=== PATIENT | male | born 1930 | race Caucasian/White ===

== ENCOUNTER 2018-04-03 15:53 | Inpatient (IN) | payer OTHER ==
--- NOTE | 2018-04-03 16:13 | EDM.PDOC ---
ED HPI GENERAL MEDICAL PROBLEM - General Chief Complaint: Genitourinary Problem Stated Complaint: post TURP 04-02-18, now cannot void Time Seen by Provider: 04/03/18 16:05 Source of Information: Reports: Patient, Family (Daughter, Deb), Old Records ( [facility] EMR. No paper hospital chart available.) History Limitations: Reports: No Limitations - History of Present Illness INITIAL COMMENTS - FREE TEXT/NARRATIVE: The patient was brought to the emergency room via private automobile by his daughter for evaluation of postoperative urinary retention after TURP at [facility] yesterday. His Joshua catheter was discontinued at about 7 AM this morning with patient able to void without significant difficulty prior to discharge at about 10:30 a.m. Since that time, however, he has not been able to void at all with increasing 6/10 suprapubic pain and pressure secondary to urinary retention. No recent history of abdominal pain, heartburn, nausea, diarrhea, melena, gross hematochezia, or any food intolerance , including fatty foods, etc. with normal bowel movement immediately prior to arrival to our emergency room. The patient denies any chest pain/pressure, heart flutter, dizziness, orthostasis, orthopnea, diaphoresis, paresthesias, recent decreased exercise tolerance, or any other anginal-type symptoms. The patient also denies any recent fever, cough, wheezing, dyspnea, etc.. The patient did have IV Cipro at time of the above hospitalization with development of a rash despite tolerating Cipro in the past. Onset: Today, Gradual Onset Date: 04/03/18 Onset Time: 10:30 Duration: Constant, Getting Worse Location: Reports: Pelvis. Denies: Head, Face, Neck, Chest, Abdomen, Back, Generalized, Radiates to Quality: Reports: Pressure Severity: Moderate Improves with: Reports: None Worsens with: Reports: None Context: Reports: Other (As above) Associated Symptoms: Reports: Rash (Previous rash resolved as above). Denies: Confusion, Chest Pain, Cough, Diaphoresis, Fever/Chills, Headaches, Loss of Appetite, Malaise, Nausea/Vomiting, Shortness of Breath, Syncope, Weakness Treatments DENTAL TECHNOLOGIST: Reports: Other (see below) (None) Middle Pelvic Pain Score (Numeric/FACES): 6 - Related Data Allergies Allergy/AdvReac Type Severity Reaction Status Date / Time cashew nut Allergy Airway Verified 04/03/18 15:56 Tightness ciprofloxacin [From Cipro] Allergy Hives Verified 04/03/18 15:55 pistachio nut Allergy Airway Verified 04/03/18 15:56 Tightness Home Meds: Home Meds Acetaminophen [Tylenol] 650 mg PO Q6H 04/03/18 [History] Atenolol 0.25 tab PO BEDTIME 04/03/18 [History] Atenolol [Tenormin] 25 mg PO DAILY 04/03/18 [History] Ferrous Sulfate [Slow Release Iron] 160 mg PO Q48H 04/03/18 [History] Finasteride 5 mg PO BID 04/03/18 [History] LORazepam [Ativan] 0.5 mg PO DAILY 04/03/18 [History] LORazepam [Ativan] 1 mg PO BEDTIME 04/03/18 [History] Magnesium Oxide 250 mg PO Q72H 04/03/18 [History] PARoxetine HCl [Paxil] 40 mg PO DAILY 04/03/18 [History] Polyethylene Glycol 3350 [Miralax] 17 gm PO DAILY 04/03/18 [History] Past Medical History HEENT History: Reports: Hard of Hearing, Impaired Vision, Other (See Below). Denies: Allergic Rhinitis, Cataract, Glaucoma, Macular Degeneration, Retinal Detachment Other HEENT History: Moderate bilateral presbycusis including with hearing aid therapy bilaterally. Patient was glasses. Previous history of nasal fracture at about age 28. Cardiovascular History: Reports: Afib, Arrhythmia, Hypertension, Other (See Below). Denies: Aneurysm, Blood Clots/VTE/DVT, CAD, Heart Failure, Heart Murmur , High Cholesterol, OH, PVD, Syncope Other Cardiovascular History: Previous history of atrial fibrillation and Pradaxa therapy, which was stopped secondary to GI bleed as below. Complete right bundle branch block. Pulmonary hypertension by EKG. Respiratory History: Reports: Intubation, Previous. Denies: Asthma, Bronchitis , Recurrent, COPD, Intubation, Difficult, PE, Pneumonia, Recurrent, Pneumothorax , Sleep Apnea, TB Gastrointestinal History: Reports: Chronic Constipation, Diverticulosis, Gastritis, GI Bleed, Hemorrhoids, Other (See Below). Denies: Celiac Disease, Cholelithiasis, Chronic Diarrhea, Colon Polyp, Hepatitis, Inflammatory Bowel Disease, Irritable Bowel Syndrome, Jaundice, Pancreatitis Other Gastrointestinal History: GI bleed of unknown source in 2017 secondary to Pradaxa, which has since been discontinued. Genitourinary History: Reports: BPH, Prostate Disorder, Retention, Urinary, UTI , Recurrent, Other (See Below). Denies: Acute Renal Failure, Chronic Renal Insuffiency, Dialysis, Renal Calculus, STD, Urinary Incontinence Other Genitourinary History: 2.7 cm right renal cysts by ultrasound. Musculoskeletal History: Reports: Arthritis, Neck Pain, Chronic, Osteoarthritis. Denies: Amputation, Back Pain, Chronic, Fracture, Gout, RA, SLE Neurological History: Reports: Neuropathy, Peripheral, TIA, Other (See Below). Denies: Alzheimers Disease, Cerebral Aneurysms, Concussion, CVA, Headaches, Chronic, Head Trauma, Migraines, MS, Neuropathy, Diabetic, Parkinson's, Seizure , Vertigo Other Neuro History: Current TIAs possibly secondary to atrial fibrillation and intolerance to anticoagulation as above initially diagnosed at age 86. Benign essential tremor. Psychiatric History: Reports: Anxiety, Depression, Psych Hospitalization(s), Suicide Attempt, Suicidal Ideation, Other (See Below). Denies: Abuse, Victim of , ADD, ADHD, Addiction, Alzheimers Disease, Dementia, Hallucinations, Panic Attack, PTSD Other Psychiatric History: Psychiatric hospitalization in the [place] in [place] for suicidal attempt in April 2017 with the patient trying to hang himself at that time. Endocrine/Metabolic History: Reports: Other (See Below). Denies: Diabetes, Type I, Diabetes, Type II, Diabetes Mellitus, Type 3c, Hypothyroidism, IDDM, Osteopenia, Osteoporosis Other Endocrine/Metabolic History: Hypomagnesemia. Hyponatremia. Hematologic History: Reports: Anemia, Iron Deficiency. Denies: Blood Transfusion(s) Immunologic History: Denies: AIDS, HIV, SLE Oncologic (Cancer) History: Reports: None. Denies: Basal Cell Carcinoma, Bladder, Colon, Hodgkin's Lymphoma, Leukemia, Lymphoma, Non-Hodgkin's Lymphoma, Prostate, Squamous Cell Carcinoma Dermatologic History: Reports: Eczema. Denies: Psoriasis - Infectious Disease History Infectious Disease History: Reports: Chicken Pox, Measles, Mumps, Shingles, Other (See Below). Denies: C-Difficile, Meningitis, Mononucleosis, MRSA, Pertussis (Whooping Cough), Rheumatic Fever, Rubella, Scarlet Fever, TB, VRE Other Infectious Disease History: Shingles in the posterior aspect of the Right leg in the 1980s. - Past Surgical History Head Surgeries/Procedures: Reports: None HEENT Surgical History: Reports: Adenoidectomy, Oral Surgery, Tonsillectomy, Other (See Below). Denies: Cataract Surgery, Eye Surgery, Laser Surgery, LASIK , Myringotomy w Tube(s), Naso-Sinus Surgery, Polypectomy Other HEENT Surgeries/Procedures: Tonsillectomy and adenoidectomy as a child. [place] teeth extraction 4 at age 19 with additional teeth extractions. Cardiovascular Surgical History: Reports: None. Denies: Varicose, Vascular Surgery Respiratory Surgical History: Reports: None. Denies: Thoracentesis GI Surgical History: Reports: Appendectomy, Colon, EGD, Hernia, Inguinal, Other (See Below). Denies: Cholecystectomy, Polypectomy Other GI Surgeries/Procedures: Appendectomy at about age 9. EGD and colonoscopy in 2017. Right inguinal hernia repair at about age 68. Male Surgical History: Reports: TURP-Transurethral Resection of Prostate, Other (See Below). Denies: Circumcision, Vasectomy Other Male Surgeries/Procedures: Right Sided hydrocele repair 2007. TURP on 04/02/18. Endocrine Surgical History: Reports: None. Denies: Thyroid Biopsy Neurological Surgical History: Reports: None. Denies: C-Spine, Discectomy, Laminectomy, Lumbar Spine, Sacral Spine, Spinal Fusion, Thoracic Spine, Vertebroplasty Musculoskeletal Surgical History: Denies: Arthroscopic Procedure, Carpal Tunnel , Ganglion Cyst, Joint Replacement, ORIF, Shoulder Surgery Oncologic Surgical History: Reports: None Dermatological Surgical History: Reports: Other (See Below) Other Dermatological Surgeries/Procedures: Benign cyst removal from the left hand at about age 53. - Past Imaging History Past Imaging History: Reports: Ultrasound (Pelvic ultrasound on 02/14/15.) Social & Family History - Family History HEENT: Reports: None. Denies: Glaucoma, Macular Degeneration, Retinal Detachment Cardiac: Reports: None. Denies: Afib, Aneurysm, Arrhythmia, Blood Clots/VTE/DVT , Bypass, CAD, Heart Failure, High Cholesterol, Hypertension, OH, PVD/COD, Stent , Syncope Respiratory: Reports: None. Denies: Asthma, COPD, PE, Pneumothorax, Sleep Apnea GI: Reports: None. Denies: Celiac Disease, Cholelithiasis, Colon Polyps, GERD, GI bleed, Inflammatory Bowel Disease, Irritable Bowel Syndrome, PUD : Reports: Renal Disease/Insufficiency, Other (See Below). Denies: Dialysis, Renal Calculus Other Family History: Brother with renal insufficiency secondary to alcohol use. OBGYN: Reports: None. Denies: Endometriosis, Recurrent Spontaneous Musculoskeletal: Reports: None. Denies: Gout, RA, SLE Neurological: Reports: CVA, Other (See Below). Denies: Alzheimers Disease, Cerebral Aneurysms, Dementia, Migraines, MS, Parkinson's, Seizure, TIA Other Neurological Family History: Father with fatal CVA in his 70s. Psychiatric: Reports: Anxiety, Depression, Psych Hospitalization(s), Suicide Attempt, Other (See Below). Denies: Abuse, Victim of, ADD, ADHD, PTSD Other Psychiatric Family History: Mother with successful suicide at age 35. Sister with successful suicide at 48. another sister with attempted suicidal at about age 50. Brother with history of alcohol abuse. Endocrine/Metabolic: Reports: None. Denies: Diabetes, Type I, Diabetes, type II , Diabetes Mellitus, Type 3c, Hypothyroidism, IDDM Hematologic: Reports: None. Denies: Anemia, SLE Immunologic: Reports: None. Denies: AIDS, HIV, SLE Dermatologic: Reports: None. Denies: Eczema, Psoriasis Oncologic: Reports: None. Denies: Bladder, Colon, Hodgkin's Lymphoma, Leukemia , Lymphoma, Non-Hodgkin's Lymphoma, Prostate, Renal, Skin - Tobacco Use Smoking Status *Q: Never Smoker Tobacco Use Within Last Twelve Months: No Used Tobacco, but Quit: No Smoking Cessation Information Provided To Patient: No Second Hand Smoke Exposure: Yes Source of Second Hand Smoke Exposure: Daughter smokes Second Hand Smoke Education Provided: Yes - Caffeine Use Caffeine Use: Reports: None. Denies: Coffee, Energy Drinks, Soda, Tea - Alcohol Use Alcohol Use History: Yes Days Per Week of Alcohol Use: 7 Number of Drinks Per Day: 1 Number of Drinks Per Day Comment: No previous DWIs, problems with alcohol abuse , etc. Usually beer Total Drinks Per Week: 7 Alcohol Use in Last Twelve Months: No Alcohol Use Frequency: Daily - Recreational Drug Use Recreational Drug Use: No Drug Use in Last 12 Months: No Recreational Drug Type: Denies: Amphetamines (Speed), Cocaine, Heroin, Inhalants (Glues, Solvents, Aerosols), LSD (Acid), Marijuana/Hashish, Methamphetamine, Morphine, Oxycodone - Living Situation & Occupation Living situation: Reports: (September 2015. 3 natural children and 2 stepchildren.) Occupation: Retired (Retired [employer] at age 66.) ED ROS GENERAL - Review of Systems Review Of Systems: ROS reveals no pertinent complaints other than HPI. ED EXAM, GENERAL - Physical Exam Exam: See Below Exam Limited By: No Limitations General Appearance: Alert, WD/WN, No Apparent Distress, Anxious (Mild) Eye Exam: Bilateral Eye: EOMI, Normal Inspection (Patient wearing glasses. No nystagmus), PERRL Ears: Normal External Exam, Hearing Loss (Moderate to severe persistent presbycusis despite bilateral hearing and therapy.) Nose: Normal Mucosa, No Blood, Nasal Deformity (Secondary Neck very to previous nasal fracture) Throat/Mouth: Normal Inspection, Normal Lips, Normal Teeth (Multiple missing teeth), Normal Gums, Normal Oropharynx, Normal Voice, No Airway Compromise. No : Dysphagia, Perioral Cyanosis Head: Atraumatic, Normocephalic. No: Facial Swelling, Facial Tenderness, Sinus Tenderness Neck: Supple, Non-Tender, Full Range of Motion, Carotid Bruit (Mild bilateral carotid bruits). No: Lymphadenopathy (L), Lymphadenopathy (R), Thyromegaly Respiratory/Chest: No Respiratory Distress, Lungs Clear, Normal Breath Sounds, No Accessory Muscle Use, Chest Non-Tender. No: Pleural Rub, Retractions Cardiovascular: Normal Peripheral Pulses, Regular Rate, Rhythm, No Edema, No Gallop, No JVD, No Murmur, No Rub. No: Gallop/S3, Gallop/S4, Friction Rub Peripheral Pulses: 2+: Radial (L), Radial (R), Dorsalis Pedis (L), Dorsalis Pedis (R) GI/Abdominal: Normal Bowel Sounds, No Organomegaly, No Distention, No Abnormal Bruit, No Mass, Pelvis Stable, Tender (Mild palpation pain over the bladder with evidence of retention). No: Guarding, Rigid, Rebound (Male) Exam: Deferred Rectal (Males) Exam: Deferred Back Exam: Normal Inspection, Full Range of Motion. No: CVA Tenderness (L), CVA Tenderness (R), Muscle Spasm Extremities: Normal Inspection, Normal Range of Motion, Non-Tender, No Pedal Edema, Normal Capillary Refill. No: Zelalem's Sign Neurological: Alert, Oriented, CN II-XII Intact, Normal Cognition, Normal Gait, Normal Reflexes (Negative Babinski's), No Motor/Sensory Deficits, Other (Benign resting tremor in hands with no rigidity or cogwheeling) Psychiatric: Normal Affect, Normal Mood Skin Exam: Warm, Dry, Intact, Normal Color, No Rash. No: Diaphoretic, Wound/ Incision Lymphatic: No Adenopathy Course - Vital Signs Last Recorded V/S: Last Vital Signs Temp 36.4 C 04/03/18 16:04 Pulse 67 04/03/18 16:04 Resp 20 04/03/18 16:04 BP 150/71 H 04/03/18 16:04 Pulse Ox 95 04/03/18 16:04 Vital Signs - 24 hr 04/03/18 16:04 Temperature [ 36.4 C Temporal] Pulse, 67 Peripheral [ Right Pulse Oximetry] Respiratory 20 Rate Blood Pressure 150/71 H [Right Upper Arm] O2 Sat by Pulse 95 Oximetry - Orders/Labs/Meds Orders: Active Orders 24 hr Category Date Time Status Communication Order [RC] ROUTINE Care 04/03/18 16:16 Active Insert Joshua Catheter [Insert Urinary Catheter] [OM.PC] Care 04/03/18 16:15 Ordered Q24H Peripheral IV Care [RC] . DIRECTED Care 04/03/18 16:17 Active Urinary Catheter Assessment [RC] ASDIRECTED Care 04/03/18 16:16 Active CULTURE URINE [RM] Routine Lab 04/03/18 17:10 Received Sodium Chloride 0.9% [Saline Flush] Med 04/03/18 16:17 Active 10 ml FLUSH ASDIRECTED PRN cefTRIAXone [Rocephin] 1 gm Med 04/03/18 17:00 Active Sodium Chloride 0.9% [Normal Saline] 100 ml IV Q12H Obtain Past Medical Record [OM.PC] Routine Oth 04/03/18 16:15 Active Peripheral IV Insertion Adult [OM.PC] Routine Oth 04/03/18 16:17 Ordered Medication Orders Ceftriaxone Sodium 1 gm/ (Sodium Chloride) 100 mls @ 200 mls/hr IV Q12H CHELITA Last Admin: 04/03/18 17:31 Dose: 200 mls/hr Sodium Chloride (Saline Flush) 10 ml FLUSH ASDIRECTED PRN PRN Reason: Keep Vein Open Last Admin: 04/03/18 17:31 Dose: 10 ml Labs: Laboratory Tests 04/03/18 04/03/18 04/03/18 Range/Units 16:27 16:27 16:27 WBC 13.3 H (4.0-10.2) K/uL RBC 4.28 L (4.33-5.41) M/uL Hgb 15.1 (13.1-16.8) g/dL Hct 42.5 (39.0-49.0) % MCV 99.3 H (84.0-98.0) fL MCH 35.3 H (28.2-33.3) pg MCHC 35.5 (31.7-36.0) g/dL RDW 12.0 (11.2-14.1) % Plt Count 161 (150-350) K/uL Neut % (Auto) 81.2 H (45.0-80.0) % Lymph % (Auto) 7.5 L (10.0-50.0) % [place] % (Auto) 11.2 (2.0-14.0) % Eos % (Auto) 0.0 (0.0-5.0) % Baso % (Auto) 0.1 (0.0-2.0) % Neut # (Auto) 10.79 H (1.40-7.00) K/uL Lymph # (Auto) 1.00 (0.50-3.50) K/uL [place] # (Auto) 1.49 H (0.00-1.00) K/uL Eos # (Auto) 0.00 (0.00-0.50) K/uL Baso # (Auto) 0.01 (0.00-0.20) K/uL Sodium 135 L (136-145) mmol/L Potassium 5.0 (3.5-5.1) mmol/L Chloride 100 (98-107) mmol/L Carbon Dioxide 26.7 (21.0-32.0) mmol/L BUN 18 (7-18) mg/dL Creatinine 1.09 (0.51-1.17) mg/dL Est Cr Clr Drug Dosing TNP Estimated GFR (MDRD) > 60 mL/min Glucose 103 (74-106) mg/dL Lactic Acid (0.4-2.0) mmol/L Uric Acid 3.7 (2.6-7.2) mg/dL Calcium 8.8 (8.5-10.1) mg/dL Magnesium 2.1 (1.8-2.4) mg/dL Total Bilirubin 0.7 (0.2-1.0) mg/dL AST 20 (15-37) U/L ALT 23 (12-78) U/L Alkaline Phosphatase 76 (46-116) IU/L Total Protein 6.7 (6.4-8.2) g/dL Albumin 3.3 L (3.4-5.0) g/dL Specimen Type Urine Color Urine Appearance Urine pH (5.0-9.0) Ur Specific [place] (1.005-1.030) Urine Protein (NEGATIVE) mg/dL Urine Glucose (UA) (NEGATIVE) mg/dL Urine Ketones (NEGATIVE) mg/dL Urine Occult Blood (NEGATIVE) Urine Nitrite (NEGATIVE) Urine Bilirubin (NEGATIVE) Urine Urobilinogen (0.2-1.0) E.U./dL Ur Leukocyte Esterase (NEGATIVE) Urine RBC /HPF Urine WBC /HPF Ur Epithelial Cells /LPF Urine Bacteria (NONE TO FEW) /HPF 04/03/18 04/03/18 Range/Units 16:27 17:10 WBC (4.0-10.2) K/uL RBC (4.33-5.41) M/uL Hgb (13.1-16.8) g/dL Hct (39.0-49.0) % MCV (84.0-98.0) fL MCH (28.2-33.3) pg MCHC (31.7-36.0) g/dL RDW (11.2-14.1) % Plt Count (150-350) K/uL Neut % (Auto) (45.0-80.0) % Lymph % (Auto) (10.0-50.0) % [place] % (Auto) (2.0-14.0) % Eos % (Auto) (0.0-5.0) % Baso % (Auto) (0.0-2.0) % Neut # (Auto) (1.40-7.00) K/uL Lymph # (Auto) (0.50-3.50) K/uL [place] # (Auto) (0.00-1.00) K/uL Eos # (Auto) (0.00-0.50) K/uL Baso # (Auto) (0.00-0.20) K/uL Sodium (136-145) mmol/L Potassium (3.5-5.1) mmol/L Chloride (98-107) mmol/L Carbon Dioxide (21.0-32.0) mmol/L BUN (7-18) mg/dL Creatinine (0.51-1.17) mg/dL Est Cr Clr Drug Dosing Estimated GFR (MDRD) mL/min Glucose (74-106) mg/dL Lactic Acid 2.1 H (0.4-2.0) mmol/L Uric Acid (2.6-7.2) mg/dL Calcium (8.5-10.1) mg/dL Magnesium (1.8-2.4) mg/dL Total Bilirubin (0.2-1.0) mg/dL AST (15-37) U/L ALT (12-78) U/L Alkaline Phosphatase (46-116) IU/L Total Protein (6.4-8.2) g/dL Albumin (3.4-5.0) g/dL Specimen Type Urincath Urine Color Red Urine Appearance Turbid Urine pH 6.5 (5.0-9.0) Ur Specific [place] 1.020 (1.005-1.030) Urine Protein >=300 H (NEGATIVE) mg/dL Urine Glucose (UA) Negative (NEGATIVE) mg/dL Urine Ketones Negative (NEGATIVE) mg/dL Urine Occult Blood Large H (NEGATIVE) Urine Nitrite Negative (NEGATIVE) Urine Bilirubin Negative (NEGATIVE) Urine Urobilinogen 0.2 (0.2-1.0) E.U./dL Ur Leukocyte Esterase Trace H (NEGATIVE) Urine RBC Packed /HPF Urine WBC 0-5 /HPF Ur Epithelial Cells Few /LPF Urine Bacteria Few (NONE TO FEW) /HPF Urine specimen set up for culture and sensitivity. Meds: Medications Generic Name Dose Route Start Last Admin Trade Name Freq PRN Reason Stop Dose Admin Ceftriaxone Sodium 1 gm/ 100 mls @ 200 mls/hr 04/03/18 17:00 04/03/18 17:31 Sodium Chloride IV 200 mls/hr Q12H CHELITA Administration Sodium Chloride 10 ml 04/03/18 16:17 04/03/18 17:31 Saline Flush FLUSH 10 ml ASDIRECTED PRN Administration Keep Vein Open - Radiology Interpretation Free Text/Narrative:: None Departure - Departure Time of Disposition: 17:35 Disposition: Admitted As Inpatient 64 Condition: Good Clinical Impression: UTI, Urinary tract infectious disease, Urinary retention, Hyponatremia, Hypoalbuminemia, Lactic acid increased, Mixed anxiety depressive disorder Osteoarthritis Qualifiers: Osteoarthritis location: multiple joints Osteoarthritis type: primary Qualified Code(s): M15.0 - Primary generalized (osteo)arthritis Iron deficiency anemia Qualifiers: Iron deficiency anemia type: unspecified iron deficiency Qualified Code(s): D50.9 - Iron deficiency anemia, unspecified Hypertension Qualifiers: Hypertension type: essential hypertension Qualified Code(s): I10 - Essential ( primary) hypertension - Discharge Information *PRESCRIPTION DRUG MONITORING PROGRAM REVIEWED*: Not Applicable *COPY OF PRESCRIPTION DRUG MONITORING REPORT IN PATIENT KIKA: Not Applicable - Problem List & Annotations (1) Urinary retention SNOMED Code(s): 064308018 Code(s): R33.9 - RETENTION OF URINE, UNSPECIFIED Status: Acute Priority: High Current Visit: No Onset Date: 04/03/18 Annotation/Comment:: Postoperative urinary retention likely secondary to blood clots from his recent TURP. Initiated bladder irrigation in the emergency room. Anticipate 23 days of additional inpatient care. Patient's regular provider, Kye Man M.D. at the [facility], will assume his care a.m.. Note that more than 1000 mL was obtained upon placement of his three-way catheter. (2) Lactic acid increased SNOMED Code(s): 22460258 Code(s): E87.2 - ACIDOSIS Status: Acute Priority: High Current Visit: No Onset Date: 04/03/18 Annotation/Comment:: No clinical evidence of sepsis despite mild leukocytosis as above. Lactic acid level to be repeated in 3 hours and in the a.m. (3) UTI, Urinary tract infectious disease SNOMED Code(s): 80210459 Code(s): N39.0 - URINARY TRACT INFECTION, SITE NOT SPECIFIED Status: Acute Priority: High Current Visit: No Onset Date: 04/03/18 Annotation/ Comment:: Initiated IV Rocephin therapy and obtained a catheterized specimen for UA and culture and sensitivity collected in the emergency room. Note previous IV Cipro therapy during recent auscultation with secondary allergic reaction. (4) Hypertension SNOMED Code(s): 88660038 Code(s): I10 - ESSENTIAL (PRIMARY) HYPERTENSION Status: Chronic Priority : Medium Current Visit: No Annotation/Comment:: Only mildly elevated in the emergency room. Continue to observe closely. Previously stable by history. Qualifiers: Hypertension type: essential hypertension Qualified Code(s): I10 - Essential (primary) hypertension (5) Hypoalbuminemia SNOMED Code(s): 840645714 Code(s): E88.09 - OT DISORDERS OF PLASMA-PROTEIN METABOLISM, NEC Status: Acute Priority: Medium Current Visit: No Onset Date: 04/03/18 Annotation /Comment:: No previous problem with this based on our medical records. Observe for now. Consider Glucerna high-protein supplements depending on his clinical course. (6) Hyponatremia SNOMED Code(s): 94793166 Code(s): E87.1 - HYPO-OSMOLALITY AND HYPONATREMIA Status: Acute Priority : Medium Current Visit: No Onset Date: ~04/03/18 Annotation/Comment:: Previous history of borderline hyponatremia. Observe for now. No cardiac symptoms or evidence of CHF. (7) Iron deficiency anemia SNOMED Code(s): 68089094 Code(s): D50.9 - IRON DEFICIENCY ANEMIA, UNSPECIFIED Status: Chronic Priority: Medium Current Visit: No Annotation/Comment:: Currently under therapy. Observe for now. Qualifiers: Iron deficiency anemia type: unspecified iron deficiency Qualified Code(s) : D50.9 - Iron deficiency anemia, unspecified (8) Mixed anxiety depressive disorder SNOMED Code(s): 786018172 Code(s): F41.8 - OTHER SPECIFIED ANXIETY DISORDERS Status: Chronic Priority: Medium Current Visit: No Annotation/Comment:: Stable by history (9) Osteoarthritis SNOMED Code(s): 867684802 Code(s): M19.90 - UNSPECIFIED OSTEOARTHRITIS, UNSPECIFIED SITE Status: Chronic Priority: Medium Current Visit: No Annotation/Comment:: Stable by history Qualifiers: Osteoarthritis location: multiple joints Osteoarthritis type: primary Qualified Code(s): M15.0 - Primary generalized (osteo)arthritis - Problem List Review Problem List Initiated/Reviewed/Updated: Yes - My Orders Last 24 Hours: My Active Orders 04/03/18 16:15 Insert Joshua Catheter [Insert Urinary Catheter] [OM.PC] Q24H Obtain Past Medical Record [OM.PC] Routine 04/03/18 16:16 Communication Order [RC] ROUTINE Urinary Catheter Assessment [RC] ASDIRECTED 04/03/18 16:17 Peripheral IV Care [RC] . DIRECTED Sodium Chloride 0.9% [Saline Flush] 10 ml FLUSH ASDIRECTED PRN Peripheral IV Insertion Adult [OM.PC] Routine 04/03/18 17:00 cefTRIAXone [Rocephin] 1 gm Sodium Chloride 0.9% [Normal Saline] 100 ml IV Q12H 04/03/18 17:10 CULTURE URINE [RM] Routine - Assessment/Plan Admission H&P: Please use this note as an admission H&P Last 24 Hours: My Active Orders 04/03/18 16:15 Insert Joshua Catheter [Insert Urinary Catheter] [OM.PC] Q24H Obtain Past Medical Record [OM.PC] Routine 04/03/18 16:16 Communication Order [RC] ROUTINE Urinary Catheter Assessment [RC] ASDIRECTED 04/03/18 16:17 Peripheral IV Care [RC] . DIRECTED Sodium Chloride 0.9% [Saline Flush] 10 ml FLUSH ASDIRECTED PRN Peripheral IV Insertion Adult [OM.PC] Routine 04/03/18 17:00 cefTRIAXone [Rocephin] 1 gm Sodium Chloride 0.9% [Normal Saline] 100 ml IV Q12H 04/03/18 17:10 CULTURE URINE [RM] Routine Assessment:: As above Plan: As above. Extensive precautions were given to the patient and his daughter, who are in agreement with the treatment plan. The patient will require about 3-4 days of inpatient/acute care secondary to multiple health problems as above.
[2018-04-03 16:47] LABS: CHLORIDE,CL 100 mmol/L (98-107); SODIUM,NA 135 mmol/L (136-145)
[2018-04-03] MEDS: cefTRIAXone 1 GM in Sodium Chloride 0.9% 100 ML IV SCH (17:31)
[2018-04-03] MEDS: Sodium Chloride 0.9% 10 ML Syringe FLUSH PRN (17:31)
[2018-04-03] MEDS ORDERED: Acetaminophen 325 MG Tab PO PRN (17:46)
[2018-04-03] MEDS ORDERED: Ondansetron 4 MG/2 ML SDV IVPUSH PRN (17:46)
[2018-04-03] MEDS: LORazepam 1 MG Tab PO SCH (19:42)
[2018-04-03] MEDS: Atenolol 25 MG Tab PO SCH (19:42)
[2018-04-03] MEDS: Polyethylene Glycol 3350 Powder 17 GM Packet PO SCH (19:43)
[2018-04-03] MEDS: Sodium Chloride 0.9% 10 ML Syringe FLUSH SCH (19:47)
[2018-04-03] MEDS ORDERED: Lactated Ringers 1,000 ML IV SCH ×2 (20:53→22:00)
[2018-04-03] MEDS ORDERED: Lactated Ringers 1,000 ML IV ONE (20:56)
--- NOTE | 2018-04-04 02:04 | PCM.SN ---
- Free Text/Narrative Note: Note follow-up lactic acid level was still elevated and somewhat increased. 1 L IV LR given with continuation of IV fluids during early phases of this hospitalization.. Lactic acid to be repeated in the a.m. Still no clinical evidence of sepsis.
[2018-04-04] MEDS: cefTRIAXone 1 GM in Sodium Chloride 0.9% 100 ML IV SCH ×2 (05:11→17:34)
[2018-04-04] MEDS: Sodium Chloride 0.9% 10 ML Syringe FLUSH PRN ×2 (05:12→17:36)
[2018-04-04] MEDS ORDERED: Magnesium Oxide 400 MG Tab PO SCH (07:30)
[2018-04-04] MEDS ORDERED: Ferrous Sulfate 160 MG TAB.ER PO ONE (07:30)
[2018-04-04 07:53] LABS: CHLORIDE,CL 100 mmol/L (98-107); SODIUM,NA 135 mmol/L (136-145)
[2018-04-04] MEDS ORDERED: Atenolol 25 MG Tab PO SCH (08:00)
[2018-04-04] MEDS ORDERED: PARoxetine 20 MG Tab PO SCH ×2 (08:00→20:00)
[2018-04-04] MEDS: LORazepam 0.5 MG Tab PO SCH (08:52)
[2018-04-04] MEDS: Sodium Chloride 0.9% 10 ML Syringe FLUSH SCH ×2 (08:53→19:34)
--- NOTE | 2018-04-04 11:52 | PCM.PN ---
- General Info Date of Service: 04/04/18 Admission Dx/Problem (Free Text): Genitourinary retention postoperative Functional Status: Reports: Pain Controlled, Tolerating Diet - Review of Systems General: Reports: Weakness HEENT: Reports: No Symptoms Pulmonary: Reports: No Symptoms Cardiovascular: Reports: No Symptoms Gastrointestinal: Reports: No Symptoms Genitourinary: Reports: Retention, Other (Three-way in place urine pink) Musculoskeletal: Reports: No Symptoms Skin: Reports: No Symptoms Neurological: Reports: No Symptoms Psychiatric: Reports: No Symptoms - Patient Data Vitals - Most Recent: Last Vital Signs Temp 98.8 F 04/04/18 05:43 Pulse 75 04/04/18 05:43 Resp 18 04/04/18 05:43 BP 115/82 04/04/18 05:43 Pulse Ox 93 L 04/04/18 05:43 Weight - Most Recent: 151 lb 7.321 oz I&O - Last 24 Hours: Intake & Output 04/03/18 04/04/18 04/04/18 22:59 06:59 14:59 Intake Total 1090 2150 580 Output Total 2560 3050 790 Balance -1470 -900 -210 Lab Results Last 24 Hours: Laboratory Results - last 24 hr 04/03/18 04/03/18 04/03/18 Range/Units 16:27 16:27 16:27 WBC 13.3 H (4.0-10.2) K/uL RBC 4.28 L (4.33-5.41) M/uL Hgb 15.1 (13.1-16.8) g/dL Hct 42.5 (39.0-49.0) % MCV 99.3 H (84.0-98.0) fL MCH 35.3 H (28.2-33.3) pg MCHC 35.5 (31.7-36.0) g/dL RDW 12.0 (11.2-14.1) % Plt Count 161 (150-350) K/uL Neut % (Auto) 81.2 H (45.0-80.0) % Lymph % (Auto) 7.5 L (10.0-50.0) % [place] % (Auto) 11.2 (2.0-14.0) % Eos % (Auto) 0.0 (0.0-5.0) % Baso % (Auto) 0.1 (0.0-2.0) % Neut # (Auto) 10.79 H (1.40-7.00) K/uL Lymph # (Auto) 1.00 (0.50-3.50) K/uL [place] # (Auto) 1.49 H (0.00-1.00) K/uL Eos # (Auto) 0.00 (0.00-0.50) K/uL Baso # (Auto) 0.01 (0.00-0.20) K/uL PT (9.8-11.7) SEC INR APTT (22.1-29.8) SEC Sodium 135 L (136-145) mmol/L Potassium 5.0 (3.5-5.1) mmol/L Chloride 100 (98-107) mmol/L Carbon Dioxide 26.7 (21.0-32.0) mmol/L BUN 18 (7-18) mg/dL Creatinine 1.09 (0.51-1.17) mg/dL Est Cr Clr Drug Dosing TNP Estimated GFR (MDRD) > 60 mL/min Glucose 103 (74-106) mg/dL Lactic Acid (0.4-2.0) mmol/L Uric Acid 3.7 (2.6-7.2) mg/dL Calcium 8.8 (8.5-10.1) mg/dL Magnesium 2.1 (1.8-2.4) mg/dL Total Bilirubin 0.7 (0.2-1.0) mg/dL AST 20 (15-37) U/L ALT 23 (12-78) U/L Alkaline Phosphatase 76 (46-116) IU/L Total Protein 6.7 (6.4-8.2) g/dL Albumin 3.3 L (3.4-5.0) g/dL Specimen Type Urine Color Urine Appearance Urine pH (5.0-9.0) Ur Specific [place] (1.005-1.030) Urine Protein (NEGATIVE) mg/dL Urine Glucose (UA) (NEGATIVE) mg/dL Urine Ketones (NEGATIVE) mg/dL Urine Occult Blood (NEGATIVE) Urine Nitrite (NEGATIVE) Urine Bilirubin (NEGATIVE) Urine Urobilinogen (0.2-1.0) E.U./dL Ur Leukocyte Esterase (NEGATIVE) Urine RBC /HPF Urine WBC /HPF Ur Epithelial Cells /LPF Urine Bacteria (NONE TO FEW) /HPF 04/03/18 04/03/18 04/03/18 Range/Units 16:27 17:10 20:00 WBC (4.0-10.2) K/uL RBC (4.33-5.41) M/uL Hgb (13.1-16.8) g/dL Hct (39.0-49.0) % MCV (84.0-98.0) fL MCH (28.2-33.3) pg MCHC (31.7-36.0) g/dL RDW (11.2-14.1) % Plt Count (150-350) K/uL Neut % (Auto) (45.0-80.0) % Lymph % (Auto) (10.0-50.0) % [place] % (Auto) (2.0-14.0) % Eos % (Auto) (0.0-5.0) % Baso % (Auto) (0.0-2.0) % Neut # (Auto) (1.40-7.00) K/uL Lymph # (Auto) (0.50-3.50) K/uL [place] # (Auto) (0.00-1.00) K/uL Eos # (Auto) (0.00-0.50) K/uL Baso # (Auto) (0.00-0.20) K/uL PT (9.8-11.7) SEC INR APTT (22.1-29.8) SEC Sodium (136-145) mmol/L Potassium (3.5-5.1) mmol/L Chloride (98-107) mmol/L Carbon Dioxide (21.0-32.0) mmol/L BUN (7-18) mg/dL Creatinine (0.51-1.17) mg/dL Est Cr Clr Drug Dosing Estimated GFR (MDRD) mL/min Glucose (74-106) mg/dL Lactic Acid 2.1 H 2.7 H (0.4-2.0) mmol/L Uric Acid (2.6-7.2) mg/dL Calcium (8.5-10.1) mg/dL Magnesium (1.8-2.4) mg/dL Total Bilirubin (0.2-1.0) mg/dL AST (15-37) U/L ALT (12-78) U/L Alkaline Phosphatase (46-116) IU/L Total Protein (6.4-8.2) g/dL Albumin (3.4-5.0) g/dL Specimen Type [place] Urine Color Red Urine Appearance Turbid Urine pH 6.5 (5.0-9.0) Ur Specific [place] 1.020 (1.005-1.030) Urine Protein >=300 H (NEGATIVE) mg/dL Urine Glucose (UA) Negative (NEGATIVE) mg/dL Urine Ketones Negative (NEGATIVE) mg/dL Urine Occult Blood Large H (NEGATIVE) Urine Nitrite Negative (NEGATIVE) Urine Bilirubin Negative (NEGATIVE) Urine Urobilinogen 0.2 (0.2-1.0) E.U./dL Ur Leukocyte Esterase Trace H (NEGATIVE) Urine RBC Packed /HPF Urine WBC 0-5 /HPF Ur Epithelial Cells Few /LPF Urine Bacteria Few (NONE TO FEW) /HPF 04/04/18 04/04/18 04/04/18 Range/Units 07:05 07:05 07:05 WBC 8.2 (4.0-10.2) K/uL RBC 3.87 L (4.33-5.41) M/uL Hgb 13.6 D (13.1-16.8) g/dL Hct 38.8 L (39.0-49.0) % MCV 100.3 H (84.0-98.0) fL MCH 35.1 H (28.2-33.3) pg MCHC 35.1 (31.7-36.0) g/dL RDW 11.9 (11.2-14.1) % Plt Count 152 (150-350) K/uL Neut % (Auto) 74.3 (45.0-80.0) % Lymph % (Auto) 13.5 (10.0-50.0) % [place] % (Auto) 11.5 (2.0-14.0) % Eos % (Auto) 0.5 (0.0-5.0) % Baso % (Auto) 0.2 (0.0-2.0) % Neut # (Auto) 6.07 (1.40-7.00) K/uL Lymph # (Auto) 1.10 (0.50-3.50) K/uL [place] # (Auto) 0.94 (0.00-1.00) K/uL Eos # (Auto) 0.04 (0.00-0.50) K/uL Baso # (Auto) 0.02 (0.00-0.20) K/uL PT (9.8-11.7) SEC INR APTT (22.1-29.8) SEC Sodium 135 L (136-145) mmol/L Potassium 4.6 (3.5-5.1) mmol/L Chloride 100 (98-107) mmol/L Carbon Dioxide 27.4 (21.0-32.0) mmol/L BUN 15 (7-18) mg/dL Creatinine 0.87 (0.51-1.17) mg/dL Est Cr Clr Drug Dosing 53.82 Estimated GFR (MDRD) > 60 mL/min Glucose 92 (74-106) mg/dL Lactic Acid 1.7 (0.4-2.0) mmol/L Uric Acid (2.6-7.2) mg/dL Calcium 8.1 L (8.5-10.1) mg/dL Magnesium (1.8-2.4) mg/dL Total Bilirubin 0.6 (0.2-1.0) mg/dL AST 15 (15-37) U/L ALT 20 (12-78) U/L Alkaline Phosphatase 71 (46-116) IU/L Total Protein 5.8 L (6.4-8.2) g/dL Albumin 2.9 L (3.4-5.0) g/dL Specimen Type Urine Color Urine Appearance Urine pH (5.0-9.0) Ur Specific [place] (1.005-1.030) Urine Protein (NEGATIVE) mg/dL Urine Glucose (UA) (NEGATIVE) mg/dL Urine Ketones (NEGATIVE) mg/dL Urine Occult Blood (NEGATIVE) Urine Nitrite (NEGATIVE) Urine Bilirubin (NEGATIVE) Urine Urobilinogen (0.2-1.0) E.U./dL Ur Leukocyte Esterase (NEGATIVE) Urine RBC /HPF Urine WBC /HPF Ur Epithelial Cells /LPF Urine Bacteria (NONE TO FEW) /HPF 04/04/18 Range/Units 07:05 WBC (4.0-10.2) K/uL RBC (4.33-5.41) M/uL Hgb (13.1-16.8) g/dL Hct (39.0-49.0) % MCV (84.0-98.0) fL MCH (28.2-33.3) pg MCHC (31.7-36.0) g/dL RDW (11.2-14.1) % Plt Count (150-350) K/uL Neut % (Auto) (45.0-80.0) % Lymph % (Auto) (10.0-50.0) % [place] % (Auto) (2.0-14.0) % Eos % (Auto) (0.0-5.0) % Baso % (Auto) (0.0-2.0) % Neut # (Auto) (1.40-7.00) K/uL Lymph # (Auto) (0.50-3.50) K/uL [place] # (Auto) (0.00-1.00) K/uL Eos # (Auto) (0.00-0.50) K/uL Baso # (Auto) (0.00-0.20) K/uL PT 10.8 (9.8-11.7) SEC INR 1.0 APTT 27.0 (22.1-29.8) SEC Sodium (136-145) mmol/L Potassium (3.5-5.1) mmol/L Chloride (98-107) mmol/L Carbon Dioxide (21.0-32.0) mmol/L BUN (7-18) mg/dL Creatinine (0.51-1.17) mg/dL Est Cr Clr Drug Dosing Estimated GFR (MDRD) mL/min Glucose (74-106) mg/dL Lactic Acid (0.4-2.0) mmol/L Uric Acid (2.6-7.2) mg/dL Calcium (8.5-10.1) mg/dL Magnesium (1.8-2.4) mg/dL Total Bilirubin (0.2-1.0) mg/dL AST (15-37) U/L ALT (12-78) U/L Alkaline Phosphatase (46-116) IU/L Total Protein (6.4-8.2) g/dL Albumin (3.4-5.0) g/dL Specimen Type Urine Color Urine Appearance Urine pH (5.0-9.0) Ur Specific [place] (1.005-1.030) Urine Protein (NEGATIVE) mg/dL Urine Glucose (UA) (NEGATIVE) mg/dL Urine Ketones (NEGATIVE) mg/dL Urine Occult Blood (NEGATIVE) Urine Nitrite (NEGATIVE) Urine Bilirubin (NEGATIVE) Urine Urobilinogen (0.2-1.0) E.U./dL Ur Leukocyte Esterase (NEGATIVE) Urine RBC /HPF Urine WBC /HPF Ur Epithelial Cells /LPF Urine Bacteria (NONE TO FEW) /HPF John Results Last 24 Hours: Microbiology 04/03/18 20:20 Stool Occult Blood (JOHN) - Final Stool / Feces NEGATIVE OCCULT BLOOD Med Orders - Current: Current Medications Acetaminophen (Tylenol) 650 mg PO Q4H PRN PRN Reason: Pain Atenolol (Tenormin) 6.25 mg PO BEDTIME [facility] Last Admin: 04/03/18 19:42 Dose: 6.25 mg Ferrous Sulfate (Slow Release Iron) 160 mg PO Q48H [facility] Ceftriaxone Sodium 1 gm/ (Sodium Chloride) 100 mls @ 200 mls/hr IV Q12H [facility] Last Admin: 04/04/18 05:11 Dose: 200 mls/hr Lorazepam (Ativan) 0.5 mg PO DAILY [facility] Last Admin: 04/04/18 08:52 Dose: 0.5 mg Lorazepam (Ativan) 1 mg PO BEDTIME [facility] Last Admin: 04/03/18 19:42 Dose: 1 mg Magnesium Oxide (Magnesium Oxide) 400 mg PO Q72H [facility] Last Admin: 04/04/18 08:51 Dose: 400 mg Ondansetron HCl (Zofran) 4 mg IVPUSH Q6H PRN PRN Reason: Nausea/Vomiting Paroxetine HCl (Paxil) 40 mg PO BEDTIME [facility] Polyethylene Glycol (Miralax) 17 gm PO BEDTIME [facility] Last Admin: 04/03/18 19:43 Dose: 17 gm Sodium Chloride (Saline Flush) 10 ml FLUSH ASDIRECTED PRN PRN Reason: Keep Vein Open Last Admin: 04/04/18 05:12 Dose: 10 ml Sodium Chloride (Saline Flush) 10 ml FLUSH Q12HR [facility] Last Admin: 04/04/18 08:53 Dose: Not Given Discontinued Medications Atenolol (Tenormin) 25 mg PO DAILY [facility] Last Admin: 04/04/18 08:54 Dose: Not Given Ferrous Sulfate (Slow Release Iron) 160 mg PO ONETIME ONE Stop: 04/04/18 07:31 Last Admin: 04/04/18 08:51 Dose: 160 mg Lactated Ringer's (Ringers, Lactated) 1,000 mls @ 999 mls/hr IV ASDIRECTED [facility] Lactated Ringer's (Ringers, Lactated) 1,000 mls @ 100 mls/hr IV ASDIRECTED [facility] Last Admin: 04/03/18 22:12 Dose: 100 mls/hr Lactated Ringer's (Ringers, Lactated) 1,000 mls @ 999 mls/hr IV ONETIME ONE Stop: 04/03/18 21:56 Last Admin: 04/03/18 21:10 Dose: 999 mls/hr Paroxetine HCl (Paxil) 40 mg PO DAILY [facility] Last Admin: 04/04/18 08:54 Dose: Not Given - Exam General: Alert, Oriented HEENT: Pupils Equal, Pupils Reactive, EOMI, Mucous Membr. Moist/[place] Neck: Supple Lungs: Clear to Auscultation, Normal Respiratory Effort Cardiovascular: Regular Rate, Regular Rhythm GI/Abdominal Exam: Normal Bowel Sounds, Soft, Non-Tender, No Organomegaly, No Distention, No Abnormal Bruit, No Mass, Pelvis Stable (Male) Exam: Other (Three-way catheter in place urine pink) Back Exam: Normal Inspection, Full Range of Motion Extremities: Normal Inspection, Normal Range of Motion, Non-Tender, No Pedal Edema, Normal Capillary Refill Skin: Warm, Dry, Intact Wound/Incisions: Healing Well Neurological: No New Focal Deficit Psy/Mental Status: Alert, Normal Affect, Normal Mood - Problem List & Annotations (1) Urinary retention SNOMED Code(s): 479746982 Code(s): R33.9 - RETENTION OF URINE, UNSPECIFIED Status: Acute Priority: High Current Visit: No Onset Date: 04/03/18 Annotation/Comment:: Postoperative urinary retention secondary to blood clots currently on three-way urine clearing up we will attempt at removal of catheter tomorrow in the morning see if he is able to void if able to void will discharge home - Problem List Review Problem List Initiated/Reviewed/Updated: Yes - My Orders Last 24 Hours: My Active Orders 04/04/18 20:00 PARoxetine [Paxil] 40 mg PO BEDTIME
[2018-04-04] MEDS: Polyethylene Glycol 3350 Powder 17 GM Packet PO SCH (19:03)
[2018-04-04] MEDS: LORazepam 1 MG Tab PO SCH (19:33)
[2018-04-04] MEDS: Finasteride 5 MG Tab PO SCH (19:33)
[2018-04-04] MEDS: Atenolol 25 MG Tab PO SCH (19:33)
[2018-04-05] MEDS: cefTRIAXone 1 GM in Sodium Chloride 0.9% 100 ML IV SCH (05:55)
[2018-04-05] MEDS: LORazepam 0.5 MG Tab PO SCH (07:25)
[2018-04-05] MEDS: Finasteride 5 MG Tab PO SCH (07:26)
[2018-04-05] MEDS: Sodium Chloride 0.9% 10 ML Syringe FLUSH SCH (07:26)
[2018-04-05 08:03] LABS: CHLORIDE,CL 97 mmol/L (98-107); SODIUM,NA 132 mmol/L (136-145)
[2018-04-05] MEDS ORDERED: Ferrous Sulfate 160 MG TAB.ER PO SCH (09:00)
--- NOTE | 2018-04-05 10:00 | PCM.PN ---
- General Info Date of Service: 04/05/18 Admission Dx/Problem (Free Text): Genitourinary retention postoperative today 3-way catheter was checked no gross blood no clots we will go ahead and remove it and discharge him home if voiding okay in the afternoon Functional Status: Reports: Urinating - Review of Systems General: Reports: No Symptoms HEENT: Reports: No Symptoms Pulmonary: Reports: No Symptoms Cardiovascular: Reports: No Symptoms Gastrointestinal: Reports: No Symptoms Musculoskeletal: Reports: No Symptoms Skin: Reports: No Symptoms Neurological: Reports: No Symptoms Psychiatric: Reports: No Symptoms - Patient Data Vitals - Most Recent: Last Vital Signs Temp 98.1 F 04/05/18 08:00 Pulse 64 04/05/18 08:00 Resp 16 04/05/18 08:00 BP 140/80 04/05/18 08:00 Pulse Ox 94 L 04/05/18 08:00 Weight - Most Recent: 151 lb 7.321 oz I&O - Last 24 Hours: Intake & Output 04/04/18 04/05/18 04/05/18 22:59 06:59 14:59 Intake Total 1140 1475 560 Output Total 1365 3150 Balance -225 -1675 560 Lab Results Last 24 Hours: Laboratory Results - last 24 hr 04/05/18 04/05/18 Range/Units 07:35 07:35 WBC 6.8 (4.0-10.2) K/uL RBC 4.00 L (4.33-5.41) M/uL Hgb 14.2 (13.1-16.8) g/dL Hct 39.5 (39.0-49.0) % MCV 98.8 H (84.0-98.0) fL MCH 35.5 H (28.2-33.3) pg MCHC 35.9 (31.7-36.0) g/dL RDW 11.5 (11.2-14.1) % Plt Count 159 (150-350) K/uL Neut % (Auto) 68.1 (45.0-80.0) % Lymph % (Auto) 17.0 (10.0-50.0) % [place] % (Auto) 13.0 (2.0-14.0) % Eos % (Auto) 1.5 (0.0-5.0) % Baso % (Auto) 0.4 (0.0-2.0) % Neut # (Auto) 4.64 (1.40-7.00) K/uL Lymph # (Auto) 1.16 (0.50-3.50) K/uL [place] # (Auto) 0.89 (0.00-1.00) K/uL Eos # (Auto) 0.10 (0.00-0.50) K/uL Baso # (Auto) 0.03 (0.00-0.20) K/uL Sodium 132 L (136-145) mmol/L Potassium 4.4 (3.5-5.1) mmol/L Chloride 97 L (98-107) mmol/L Carbon Dioxide 28.4 (21.0-32.0) mmol/L BUN 15 (7-18) mg/dL Creatinine 0.84 (0.51-1.17) mg/dL Est Cr Clr Drug Dosing 55.74 mL/min Estimated GFR (MDRD) > 60 mL/min Glucose 96 (74-106) mg/dL Calcium 8.3 L (8.5-10.1) mg/dL Total Bilirubin 0.6 (0.2-1.0) mg/dL AST 16 (15-37) U/L ALT 19 (12-78) U/L Alkaline Phosphatase 79 (46-116) IU/L Total Protein 6.1 L (6.4-8.2) g/dL Albumin 2.9 L (3.4-5.0) g/dL John Results Last 24 Hours: Microbiology 04/03/18 17:10 Urine Culture - Preliminary Urine, Catheterized NO GROWTH AFTER 1 DAY Med Orders - Current: Current Medications Acetaminophen (Tylenol) 650 mg PO Q4H PRN PRN Reason: Pain Atenolol (Tenormin) 6.25 mg PO BEDTIME [facility] Last Admin: 04/04/18 19:33 Dose: 6.25 mg Ferrous Sulfate (Slow Release Iron) 160 mg PO Q48H [facility] Last Admin: 04/05/18 08:25 Dose: Not Given Finasteride (Proscar) 5 mg PO BID@08,20 [facility] Last Admin: 04/05/18 07:26 Dose: 5 mg Ceftriaxone Sodium 1 gm/ (Sodium Chloride) 100 mls @ 200 mls/hr IV Q12H [facility] Last Admin: 04/05/18 05:55 Dose: 200 mls/hr Lorazepam (Ativan) 0.5 mg PO DAILY [facility] Last Admin: 04/05/18 07:25 Dose: 0.5 mg Lorazepam (Ativan) 1 mg PO BEDTIME [facility] Last Admin: 04/04/18 19:33 Dose: 1 mg Magnesium Oxide (Magnesium Oxide) 400 mg PO Q72H [facility] Last Admin: 04/04/18 08:51 Dose: 400 mg Ondansetron HCl (Zofran) 4 mg IVPUSH Q6H PRN PRN Reason: Nausea/Vomiting Paroxetine HCl (Paxil) 40 mg PO BEDTIME [facility] Last Admin: 04/04/18 19:33 Dose: 40 mg Polyethylene Glycol (Miralax) 17 gm PO BEDTIME [facility] Last Admin: 04/04/18 19:03 Dose: 17 gm Sodium Chloride (Saline Flush) 10 ml FLUSH ASDIRECTED PRN PRN Reason: Keep Vein Open Last Admin: 04/04/18 17:36 Dose: 10 ml Sodium Chloride (Saline Flush) 10 ml FLUSH Q12HR [facility] Last Admin: 04/05/18 07:26 Dose: 10 ml Discontinued Medications Atenolol (Tenormin) 25 mg PO DAILY [facility] Last Admin: 04/04/18 08:54 Dose: Not Given Ferrous Sulfate (Slow Release Iron) 160 mg PO ONETIME ONE Stop: 04/04/18 07:31 Last Admin: 04/04/18 08:51 Dose: 160 mg Lactated Ringer's (Ringers, Lactated) 1,000 mls @ 999 mls/hr IV ASDIRECTED [facility] Lactated Ringer's (Ringers, Lactated) 1,000 mls @ 100 mls/hr IV ASDIRECTED [facility] Last Admin: 04/03/18 22:12 Dose: 100 mls/hr Lactated Ringer's (Ringers, Lactated) 1,000 mls @ 999 mls/hr IV ONETIME ONE Stop: 04/03/18 21:56 Last Admin: 04/03/18 21:10 Dose: 999 mls/hr Paroxetine HCl (Paxil) 40 mg PO DAILY [facility] Last Admin: 04/04/18 08:54 Dose: Not Given - Exam Quality Assessment: Urine Catheter (Three-way will be removed today). No: Supplemental Oxygen, Central Line/PICC General: Alert, Oriented HEENT: Pupils Equal, Pupils Reactive, EOMI, Mucous Membr. Moist/[place] Neck: Supple Lungs: Clear to Auscultation, Normal Respiratory Effort Cardiovascular: Regular Rate, Regular Rhythm GI/Abdominal Exam: Normal Bowel Sounds, Soft, Non-Tender, No Organomegaly, No Distention, No Abnormal Bruit, No Mass, Pelvis Stable (Male) Exam: Other (Urinary retention secondary to surgery 3 way inserted clear now will discontinue and evaluate to see if he is able to void) Back Exam: Normal Inspection, Decreased Range of Motion Extremities: Normal Inspection, Normal Range of Motion, Non-Tender, No Pedal Edema, Normal Capillary Refill Skin: Warm, Dry, Intact Wound/Incisions: Healing Well Neurological: No New Focal Deficit Psy/Mental Status: Alert, Normal Affect, Normal Mood - Problem List & Annotations (1) Urinary retention SNOMED Code(s): 980997573 Code(s): R33.9 - RETENTION OF URINE, UNSPECIFIED Status: Acute Priority: High Current Visit: No Onset Date: 04/03/18 Annotation/Comment:: Postoperative urinary retention secondary to blood clots currently on three-way urine clearing up we will attempt at removal of catheter tomorrow in the morning see if he is able to void if able to void will discharge home - Problem List Review Problem List Initiated/Reviewed/Updated: Yes - My Orders Last 24 Hours: My Active Orders 04/04/18 15:24 Consult to Physical Therapy [PT Evaluation and Treatment] [CONS] Routine 04/04/18 20:00 Finasteride [Proscar] 5 mg PO BID@08,20 PARoxetine [Paxil] 40 mg PO BEDTIME 04/05/18 09:55 DC Joshua Catheter [Urinary Catheter Removal] [RC] Per Unit Routine - Plan Plan:: Three-way will be removed today if he is able to void we'll send him home
--- NOTE | 2018-04-05 15:18 | PCM.DCSUM1 ---
Discharge Summary - Hospital Course Free Text/Narrative:: Patient is a 87-year-old who was admitted to the hospital because of obstruction in urinary flow secondary to TURP patient was brought admitted and placed on a three-way catheter and saline was run until clear was cleared his Joshua was removed and patient was able to void without any complications now is ready to be discharged home he will be discharged to home health and family patient is a and will receive home health through [facility] Diagnosis: Stroke: No - Discharge Data Discharge Date: 04/05/18 Discharge Disposition: Home, Self-Care 01 Condition: Good - Discharge Diagnosis/Problem(s) (1) Urinary retention SNOMED Code(s): 064902821 ICD Code: R33.9 - RETENTION OF URINE, UNSPECIFIED Status: Acute Priority : High Current Visit: No Onset Date: 04/03/18 Problem Details: Patient able to void x2 without difficulty - Patient Summary/Data Consults: Consultations 04/04/18 15:24 Consult to Physical Therapy [PT Evaluation and Treatment] [CONS] Routine - Patient Instructions Diet: Usual Diet as Tolerated Activity: As Tolerated Showering/Bathing: May Shower Notify Provider of: Fever, Increased Pain, Swelling and Redness, Drainage - Discharge Plan *PRESCRIPTION DRUG MONITORING PROGRAM REVIEWED*: Not Applicable *COPY OF PRESCRIPTION DRUG MONITORING REPORT IN PATIENT KIKA: Not Applicable Home Medications: Home Meds Acetaminophen [Tylenol] 650 mg PO Q6H 04/03/18 [History] Atenolol 0.25 tab PO BEDTIME 04/03/18 [History] Ferrous Sulfate [Slow Release Iron] 160 mg PO Q48H 04/03/18 [History] Finasteride 5 mg PO BID 04/03/18 [History] LORazepam [Ativan] 0.5 mg PO DAILY 04/03/18 [History] LORazepam [Ativan] 1 mg PO BEDTIME 04/03/18 [History] Magnesium Oxide 250 mg PO Q72H 04/03/18 [History] PARoxetine HCl [Paxil] 40 mg PO BEDTIME 04/03/18 [History] Polyethylene Glycol 3350 [Miralax] 17 gm PO BEDTIME 04/03/18 [History] Forms: ED Department Discharge Referrals: Kye Man MD [Primary Care Provider] - (BMP lab draw on MondayApril 09- Lab Draw only Appt with Dr. Acosta on MondayApril 13 at 10am.) - Discharge Summary/Plan Comment DC Time >30 min.: No - General Info Date of Service: 04/05/18 - Review of Systems General: Reports: No Symptoms HEENT: Reports: No Symptoms Pulmonary: Reports: No Symptoms Cardiovascular: Reports: No Symptoms Gastrointestinal: Reports: No Symptoms Genitourinary: Reports: Other (reports no problem voiding at this time) Musculoskeletal: Reports: No Symptoms Skin: Reports: No Symptoms Neurological: Reports: No Symptoms Psychiatric: Reports: No Symptoms - Patient Data Vitals - Most Recent: Last Vital Signs Temp 98.1 F 04/05/18 08:00 Pulse 64 04/05/18 08:00 Resp 16 04/05/18 08:00 BP 140/80 04/05/18 08:00 Pulse Ox 94 L 04/05/18 08:00 Weight - Most Recent: 151 lb 7.321 oz I&O - Last 24 hours: Intake & Output 04/05/18 04/05/18 04/05/18 06:59 14:59 22:59 Intake Total 1475 1520 Output Total 3150 700 Balance -1675 820 Lab Results - Last 24 hrs: Laboratory Results - last 24 hr 04/05/18 04/05/18 Range/Units 07:35 07:35 WBC 6.8 (4.0-10.2) K/uL RBC 4.00 L (4.33-5.41) M/uL Hgb 14.2 (13.1-16.8) g/dL Hct 39.5 (39.0-49.0) % MCV 98.8 H (84.0-98.0) fL MCH 35.5 H (28.2-33.3) pg MCHC 35.9 (31.7-36.0) g/dL RDW 11.5 (11.2-14.1) % Plt Count 159 (150-350) K/uL Neut % (Auto) 68.1 (45.0-80.0) % Lymph % (Auto) 17.0 (10.0-50.0) % [place] % (Auto) 13.0 (2.0-14.0) % Eos % (Auto) 1.5 (0.0-5.0) % Baso % (Auto) 0.4 (0.0-2.0) % Neut # (Auto) 4.64 (1.40-7.00) K/uL Lymph # (Auto) 1.16 (0.50-3.50) K/uL [place] # (Auto) 0.89 (0.00-1.00) K/uL Eos # (Auto) 0.10 (0.00-0.50) K/uL Baso # (Auto) 0.03 (0.00-0.20) K/uL Sodium 132 L (136-145) mmol/L Potassium 4.4 (3.5-5.1) mmol/L Chloride 97 L (98-107) mmol/L Carbon Dioxide 28.4 (21.0-32.0) mmol/L BUN 15 (7-18) mg/dL Creatinine 0.84 (0.51-1.17) mg/dL Est Cr Clr Drug Dosing 55.74 mL/min Estimated GFR (MDRD) > 60 mL/min Glucose 96 (74-106) mg/dL Calcium 8.3 L (8.5-10.1) mg/dL Total Bilirubin 0.6 (0.2-1.0) mg/dL AST 16 (15-37) U/L ALT 19 (12-78) U/L Alkaline Phosphatase 79 (46-116) IU/L Total Protein 6.1 L (6.4-8.2) g/dL Albumin 2.9 L (3.4-5.0) g/dL TIMMY Results - Last 24 hrs: Microbiology 04/03/18 17:10 Urine Culture - Preliminary Urine, Catheterized NO GROWTH AFTER 1 DAY Med Orders - Current: Current Medications Acetaminophen (Tylenol) 650 mg PO Q4H PRN PRN Reason: Pain Atenolol (Tenormin) 6.25 mg PO BEDTIME [facility] Last Admin: 04/04/18 19:33 Dose: 6.25 mg Ferrous Sulfate (Slow Release Iron) 160 mg PO Q48H [facility] Last Admin: 04/05/18 08:25 Dose: Not Given Finasteride (Proscar) 5 mg PO BID@08,20 [facility] Last Admin: 04/05/18 07:26 Dose: 5 mg Ceftriaxone Sodium 1 gm/ (Sodium Chloride) 100 mls @ 200 mls/hr IV Q12H [facility] Last Admin: 04/05/18 05:55 Dose: 200 mls/hr Lorazepam (Ativan) 0.5 mg PO DAILY [facility] Last Admin: 04/05/18 07:25 Dose: 0.5 mg Lorazepam (Ativan) 1 mg PO BEDTIME [facility] Last Admin: 04/04/18 19:33 Dose: 1 mg Magnesium Oxide (Magnesium Oxide) 400 mg PO Q72H [facility] Last Admin: 04/04/18 08:51 Dose: 400 mg Ondansetron HCl (Zofran) 4 mg IVPUSH Q6H PRN PRN Reason: Nausea/Vomiting Paroxetine HCl (Paxil) 40 mg PO BEDTIME [facility] Last Admin: 04/04/18 19:33 Dose: 40 mg Polyethylene Glycol (Miralax) 17 gm PO BEDTIME [facility] Last Admin: 04/04/18 19:03 Dose: 17 gm Sodium Chloride (Saline Flush) 10 ml FLUSH ASDIRECTED PRN PRN Reason: Keep Vein Open Last Admin: 04/04/18 17:36 Dose: 10 ml Sodium Chloride (Saline Flush) 10 ml FLUSH Q12HR [facility] Last Admin: 04/05/18 07:26 Dose: 10 ml Discontinued Medications Atenolol (Tenormin) 25 mg PO DAILY [facility] Last Admin: 04/04/18 08:54 Dose: Not Given Ferrous Sulfate (Slow Release Iron) 160 mg PO ONETIME ONE Stop: 04/04/18 07:31 Last Admin: 04/04/18 08:51 Dose: 160 mg Lactated Ringer's (Ringers, Lactated) 1,000 mls @ 999 mls/hr IV ASDIRECTED [facility] Lactated Ringer's (Ringers, Lactated) 1,000 mls @ 100 mls/hr IV ASDIRECTED [facility] Last Admin: 04/03/18 22:12 Dose: 100 mls/hr Lactated Ringer's (Ringers, Lactated) 1,000 mls @ 999 mls/hr IV ONETIME ONE Stop: 04/03/18 21:56 Last Admin: 04/03/18 21:10 Dose: 999 mls/hr Paroxetine HCl (Paxil) 40 mg PO DAILY [facility] Last Admin: 04/04/18 08:54 Dose: Not Given - Exam General: Reports: Alert, Oriented HEENT: Reports: Pupils Equal, Pupils Reactive, EOMI, Mucous Membr. Moist/[place] Neck: Reports: Supple Lungs: Reports: Clear to Auscultation, Normal Respiratory Effort Cardiovascular: Reports: Regular Rate, Regular Rhythm GI/Abdominal Exam: Normal Bowel Sounds, Soft, Non-Tender, No Organomegaly, No Distention, No Abnormal Bruit, No Mass, Pelvis Stable (Male) Exam: Normal Inspection Rectal (Males) Exam: Deferred Extremities: Normal Inspection, Normal Range of Motion, Non-Tender, No Pedal Edema, Normal Capillary Refill Skin: Reports: Warm, Dry, Intact Neurological: Reports: No New Focal Deficit Psy/Mental Status: Reports: Alert, Normal Affect, Normal Mood
== END 2018-04-05 15:55 | disposition home or self-care (01) | DRG 699 ==
LOC: LL.ED 15:53 → LL.MS 17:18
PROVIDERS: ADMIT Family Medicine; ATTEND Family Medicine
DX: N99.89 Other postprocedural complications and disorders of genitourinary system (principal); N39.0 Urinary tract infection, site not specified; E87.1 Hypo-osmolality and hyponatremia; E87.2 Acidosis; Y83.8 Other surgical procedures as the cause of abnormal reaction of the patient, or of later complication, without mention of misadventure at the time of the procedure; H40.9 Unspecified glaucoma; I48.91 Unspecified atrial fibrillation; I10 Essential (primary) hypertension; M15.0 Primary generalized (osteo)arthritis; K59.09 Other constipation; E88.09 Other disorders of plasma-protein metabolism, not elsewhere classified; F41.8 Other specified anxiety disorders; D50.9 Iron deficiency anemia, unspecified; H91.13 Presbycusis, bilateral; N40.0 Benign prostatic hyperplasia without lower urinary tract symptoms; G62.9 Polyneuropathy, unspecified; Z79.899 Other long term (current) drug therapy; Z88.1 Allergy status to other antibiotic agents; Z91.018 Allergy to other foods; Z86.73 Personal history of transient ischemic attack (TIA), and cerebral infarction without residual deficits
CPT/HCPCS: 36415; 80053; 81001; 82272; 83605; 83735; 84550; 85025; 85610; 85730; 87086; 96365; 97116-GP; 97140-GP; 97161-GP; 97530-GP; 99284; A9270-GY; J0696; J7050; J7120